=== PATIENT | male | born 1990 | race Caucasian/White ===

== ENCOUNTER 2022-08-24 06:54 | Emergency (ER) | payer MEDICAID, SELFPAY ==
[2022-08-24 06:59] VITALS: BP 150/95; PULSE 81; RESP 14; TEMP 36.4; O2SAT 98; BMI 25.9
[2022-08-24 07:04] VITALS: BP 150/95; PULSE 80; RESP 16; TEMP 36.4; O2SAT 98
--- NOTE | 2022-08-24 07:06 | ED.RN ---
PT CURRENTLY TALKING TO FATHER ON TELEPHONE, I COULDN'T SLEEP LAST NIGHT AND THEN I WOKE UP AND WENT TO THE [facility], NOW I'M IN THE HOSPITAL, PT REPORTED HE HAD TINGLING IN LEGS AND CHEST PAIN TO FATHER ON TELEPHONE.
--- NOTE | 2022-08-24 07:34 | CT_ITS ---
STUDY: CT BRAIN WITHOUT CONTRAST REASON FOR EXAM: Male, 32 years old. Altered mental status RADIATION DOSAGE (If Supplied By Facility): CTDIvol = ( 44.99 ) mGy, DLP = ( 779.24 ) mGycm TECHNIQUE: Transaxial CT imaging of the brain was performed without administration of intravenous contrast material. Individualized dose optimization techniques were used for this CT. COMPARISON: No relevant priors. FINDINGS: Normal soft tissue structures. Normal calvarium. Normal size ventricles and extra-axial spaces for the patient''s age. Normal white matter tracts of the cerebral hemispheres. Normal basal ganglia and thalami. Normal brainstem. Normal cerebellum. There is no intracranial hemorrhage. There are no findings of an acute ischemic infarction. Normal visualized paranasal sinuses. CT/Brain/Head without Contrast IMPRESSION: Normal unenhanced CT scan of the brain. Electronically Signed: Sid Bynum MD at 8:31 EDT ,
--- NOTE | 2022-08-24 07:35 | EDS_ITS ---
HPI History of Present Illness Chief Complaint: Alt LOC Informant: patient Onset/Context/Timing Onset: Today Context: Gradual Onset Timing: Continuous Current Severity: Mild Maximum Severity: Mild Narrative Narrative: 32-year-old male no significant past medical or surgical history. States he had a lot of difficulty sleeping the last 3 days. He denies taking any sleeping pills or illicit drugs. Reportedly today he drove to the [facility] was unsure how he got there and they felt he was too complex to take care of him at their facility so they sent him to the emergency department. He denies any recent illness. He denies any headache, chest pain, abdominal pain. He denies any fever or chills. Nor any nausea, vomiting or diarrhea. He denies any falls or head injury. He denies taking any sleeping medications or illicit drugs. Prior similar symptoms: No Recent Illness/Hospitalization: No PFSH PFSH Medical History unable to obtain no medical history Allergy/AdvReac Type Severity Reaction Status Date / Time Penicillins [PCN] Allergy PT UNSURE Verified 08/24/22 07:04 OF REACTION Surgical History unable to obtain no surgical history Social History Smoking Status: Never smoker ROS ROS ED ROS Narrative Denies any recent illness. Review of Systems ROS Unobtainable: Denies due to encephalopathy Constitutional Constitutional ED: Denies chills or fever(s) Eyes Eyes: Denies blurry vision ENT ENT ED: Denies ear pain Cardiovascular Cardiovascular: Denies chest pain Respiratory/Chest Respiratory/Chest: Denies cough or dyspnea Gastrointestinal Gastrointestinal: Denies abdominal pain Genitourinary Genitourinary ED: Denies dysuria or hematuria Musculoskeletal Musculoskeletal: Denies arthralgias Integumentary Denies abscess Neurologic Neurologic: Denies headache(s) Psychiatric Psychiatric: Denies anxiety Endocrine Endocrinology: Denies cold intolerance Hematologic/Lymphatic Hematologic/Lymphatic: Reports none Allergic/Immunologic Allergic/Immunologic ED: Denies mouth swelling or tongue swelling EXAM Physical Exam Narrative Exam Narrative: 32-year-old male no acute distress. Vital signs stable afebrile. Patient seems sleep deprived. However he is confused. H EENT exam unremarkable. Atraumatic. Pupils round reactive light. Pupils are about 2 to 3 mm. No facial droop. Normal speech. No trauma. Neck nontender. No lymphadenopathy. No meningismus. Lungs clear to auscultation bilaterally. Heart regular rhythm rate about 110 no murmur. Abdomen soft nontender. Moving all 4 extremities. Nontender no edema. Normal strength and sensation. Back nontender. Neurologically he is awake. He is answering questions and following commands. He states he knew it was the fourth month but he could not tell me what month that was. He thought it was September. He did pick Prozine I states out of the list that I gave him. He did know he was in the hospital. Const Vital Signs: 08/24/22 06:59 08/24/22 07:04 Temperature 97.5 F L 97.5 F L Temperature Source Temporal Temporal Pulse Rate 81 80 Respiratory Rate 14 16 Blood Pressure 150/95 H 150/95 H Blood Pressure Mean 113 113 Pulse Ox 98 98 Oxygen Delivery Method Room Air Room Air Positive well nourished and well developed; Negative for obese, cachectic, contractures or unkempt General Appearance ED: well developed and NAD; Negative for unkempt, cachectic, contractures, cyanotic, diaphoretic or pallor Nutritional Appearance: Negative for cachectic or obese HEENT Reports moist mucous membranes; Denies dry mucous membranes Negative for trauma or tenderness Mouth ED: No dry mucous membranes Mouth: No dry mucous membranes Eyes PERRL and EOMs intact bilaterally General Eye ED: Negative for pale conjunctiva, scleral icterus or other Neck no lymphadenopathy, supple and no JVD General: Negative for tenderness Lymph Lymphatic: Negative for other Chest Wall inspection of chest normal and palpation of chest normal Chest: Negative for other Resp normal respiratory effort and clear to auscultation bilaterally Effort and Inspection: Negative for retractions Auscultation: Negative for rales, rhonchi or wheezes Cardio regular rate, regular rhythm, S1 normal heart sound, S2 normal heart sound and no murmurs Palpation: Negative for palpable S3 Rate: Negative for bradycardia Rhythm: Negative for abnormal rhythm GI normal to inspection, nondistended, normoactive bowel sounds, non-tender, non- distended and no masses Inspection: Negative for abdominal distention Auscultation: normoactive bowel sounds Palpation: soft; Negative for tender Back/Spine no CVA tenderness General Back: Negative for CVA tenderness Cervical Spine: Negative for cervical spine tenderness Thoracic Spine / Upper Back: Negative for thoracic spinal tenderness Lumbar Spine / Lower Back: Negative for lumbar spinal tenderness Extremity normal to inspection General Extremety ED: Negative for edema or tenderness General Extremity: Negative for edema Neuro oriented x3 and CN's II-XII intact bilaterally Sensorium / Orientation: alert and orientation impaired; Negative for lethargic or stuporous Motor Exam: strength 5/5 throughout Psych mental status grossly normal Appearance: Negative for unkempt Attitude: No agitated Mood & Affect: Negative for depressed Skin no rashes or lesions noted, no wounds and skin turgor normal General Skin Exam: elasticity normal; Negative for jaundice or pallor Lesions: No lesion noted Rashes: No rashes noted Trauma: Negative for abrasion Wounds: Negative for wounds noted MDM MDM MDM Narrative Medical decision making narrative: 32-year-old male with mental status change. He absolutely denies any meds or illicit drugs. This may have all be from sleep deprivation. He is confused to month. He has no slurred speech. He has normal motor strength and sensation. His exam otherwise is benign. Undergo a CAT scan of his brain and screening labs. Repeat exam at 8:40 AM patient is doing well. She had a normal exam other than I think he is got severe sleep deprivation. Will be discharged home with outpatient follow-up. Patient's father is in the room on repeat exam and we discussed the patient's exam and test results both are comfortable with him being discharged home. He will be referred to a local primary care physician office. History & Record Review Discussion w/independent historian: Patient Lab Data Attestation: I reviewed the patient's lab results. Lab results narrative: CBC normal. White count of 5. H&H of 15 and 46. Chemistries unremarkable gap of 4. Normal BUN, creatinine. Normal glucose of 101. CT of the brain showed no acute abnormality. Labs: Laboratory Results - last 24 hr 08/24/22 08/24/22 07:40 07:40 WBC 5.3 RBC 5.21 Hgb 15.9 Hct 46.7 MCV 89.6 MCH 30.5 MCHC 34.0 RDW Std Deviation 40.9 RDW Coeff of [place] 12.5 Plt Count 260 MPV 10.0 Immature Gran % (Auto) 0.200 Neut % (Auto) 68.8 Lymph % (Auto) 21.8 [place] % (Auto) 7.5 Eos % (Auto) 0.8 Baso % (Auto) 0.9 Absolute Neuts (auto) 3.7 Absolute Lymphs (auto) 1.16 Nucleated RBC % 0 Sodium 138 Potassium 3.5 Chloride 110 H Carbon Dioxide 24.0 Anion Gap 4 L BUN 14 Creatinine 0.94 Estim Creat Clear Calc 109.15 Est GFR (MDRD) Af Amer 120 Est GFR (MDRD) Non-Af 99 BUN/Creatinine Ratio 15.0 Glucose 101 Calcium 9.4 Total Bilirubin 0.50 AST 19 ALT 30 Alkaline Phosphatase 90 Total Protein 8.2 Albumin 4.2 Globulin 4.0 Albumin/Globulin Ratio 1.0 Radiography Diagnostic Testing: Clinical Impression(s) from Imaging Studies Brain CT 08/24/22 07:34 IMPRESSION: Normal unenhanced CT scan of the brain. Electronically Signed: Sid Bynum MD at 8:31 EDT Reading Location ID and State: [facility] / [place] , Service support , Rhythm Strip Rhythm Strip: Sinus Rhythm Rate: 76 Ectopy: None EKG Initial EKG: Attestation: I personally reviewed and interpreted this EKG as follows: Interpretation: Sinus Rhythm and No Acute Injury Pattern Comments: Normal sinus rhythm rate of 76 no acute signs of SD, ischemia or dysrhythmia. No prior EKG. Prior EKG tracings: not available for review Prior: No Prior Discharge Plan Triage Chief Complaint: Alt LOC ED Provider: Addison Gonzalez Dx/Rx/DC Orders Clinical Impression: Sleep deprivation, Altered level of consciousness Instructions: ED ALOC Primary Care Provider: Care Physician,No Primary Referrals: Thor Mendoza MD [Med Staff - [employer]] - As soon as possible Care Physician,No Primary [Primary Care Provider] - Activity Restrictions/Additional Instructions: Follow-up with a local primary care physician for further evaluation. Your CAT scan and labs today were unremarkable. Get some sleep. Disposition Disposition: Home, Self Care
[2022-08-24 08:03] LABS: Absolute Lymphocyte Count 1.16 X10^3/uL (0.83-4.51); Absolute Neutrophil Count 3.7 X10^3/uL (2.0-7.7); Basophil# 0.05 X10^3/uL; Basophil% 0.9 % (0-1); Eosinophil# 0.04 X10^3/uL; Eosinophils% 0.8 % (0-5); Hematocrit 46.7 % (40-54); Hemoglobin 15.9 g/dL (13.0-16.5); Lymphocyte # 1.16 X10^3/ul (0.83-4.51); Lymphocyte % 21.8 % (19-41); Mean Corpuscular Hgb 30.5 pg (27.0-32.0); Mean Corpuscular Volume 89.6 fL (80-94); Monocyte% 7.5 % (0-10); NRBC Flagged by Analyzer 0 % (0-5); Neutrophil # 3.66 X10^3/uL (2.7-7.7); Neutrophil % 68.8 % (47-70); Platelet Count 260 K/mm3 (150-450); RBC Distribution Width CV 12.5 % (11.6-14.6); RBC Distribution Width SD 40.9 fl (35.1-43.9); Red Blood Count 5.21 M/mm3 (4.6-6.2); White Blood Count 5.3 K/mm3 (4.4-11.0)
[2022-08-24 08:18] LABS: AST(SGOT) 19 U/L (15-37); Alanine Aminotransfer ALT/SGPT 30 U/L (16-61); Albumin, Serum 4.2 g/dL (3.2-5.0); Alkaline Phosphatase 90 U/L (45-117); Anion Gap 4 (5-15); BUN 14 mg/dL (7-18); Calcium,Total 9.4 mg/dL (8.5-10.1); Chloride 110 mmol/L (98-107); Creatinine, Serum 0.94 mg/dL (0.70-1.30); EST Glomerular Filtration Rate 99 mL/min (>60); Est Glom Filt Rate - Afr Amer 120 mL/min (>60); Estimated Creatinine Clearance 109.15 ml/min; Glucose 101 mg/dL (74-106); Potassium 3.5 mmol/L (3.5-5.1); Protein, Total 8.2 g/dL (6.4-8.2); Sodium Level 138 mmol/L (136-145)
[2022-08-24 08:46] VITALS: BP 127/69; PULSE 88; RESP 16; O2SAT 98
== END 2022-08-24 08:48 | disposition home or self-care (01) ==
PROVIDERS: Emergency Provider Emergency Medicine; Visit Provider Emergency Medicine
DX: R40.4 Transient alteration of awareness (principal); Z72.820 Sleep deprivation
CPT/HCPCS: 70450; 80053; 85025; 93005; 99284; A4216